=== PATIENT | female | born 2000 | race Caucasian/White ===

== ENCOUNTER 2022-10-20 00:28 | Emergency (ER) | payer MEDICAID | END 2022-10-20 01:45 | disposition home or self-care (01) | LOC: MADERS 00:28 | DX: S93.401A Sprain of unspecified ligament of right ankle, initial encounter (principal); F17.210 Nicotine dependence, cigarettes, uncomplicated; X50.1XXA Overexertion from prolonged static or awkward postures, initial encounter ==